=== PATIENT | male | born 1980 | race Asian ===

== ENCOUNTER 2017-03-29 06:06 | Emergency (ER) | payer OTHER ==
[~2017-03-29] VITALS: Ht 176.5 cm; Wt 97.7 kg
[~2017-03-29 06:06] MED LIST: ALPR2TAB7 PO; FAMO20TA32 PO; LEVE500T53 PO; METH40TA2 PO; TEMA15CA PO; VENL-193 PO
[2017-03-29] MEDS ORDERED: RISP2 PO (06:18)
[2017-03-29] MEDS ORDERED: CARI350 PO (06:18)
[2017-03-29] MEDS ORDERED: DIPH50CA35 PO (06:18)
[2017-03-29] MEDS ORDERED: DIAZ10 PO (06:18)
[2017-03-29] MEDS ORDERED: RisperiDONE 1 MG TABLET PO ONE (06:45)
[2017-03-29 06:52] LABS: BASOPHILS % (AUTO) 0.4 % (0.0-2.0); EOSINOPHILS % (AUTO) 2.2 % (1.0-6.0); HEMATOCRIT 39.1 % (41-53); HEMOGLOBIN 13.4 g/dL (13.5-17.5); LYMPHOCYTES # (AUTO) 1.5 K/uL (1.0-4.8); LYMPHOCYTES % (AUTO) 26.5 % (22.0-44.0); MEAN CORPUSCULAR HEMOGLOBIN 28.7 pg (26.0-34.0); MEAN CORPUSCULAR HGB CONC 34.3 G/dL (31.0-37.0); MEAN CORPUSCULAR VOLUME 84 fL (80-100); MONOCYTES # (AUTO) 0.3 K/uL (0.1-1.0); MONOCYTES % (AUTO) 5.2 % (2.0-9.0); NEUTROPHILS # (AUTO) 3.7 K/uL (1.8-7.7); NEUTROPHILS % (AUTO) 65.7 % (40.0-70.0); PLATELET COUNT (AUTO) 301 K/uL (150-450); RED BLOOD CELL COUNT(AUTO) 4.66 MIL/uL (4.50-5.90); RED CELL DISTRIBUTION WIDTH 12.9 % (11.5-14.5); WHITE BLOOD COUNT (AUTO) 5.7 K/uL (4.5-11.0)
[2017-03-29 06:55] LABS: ANION GAP 12 mmol/L (8-16); CALCIUM, TOTAL 9.1 mg/dL (8.8-10.5); CARBON DIOXIDE 27 mmol/L (22-29); CHLORIDE 99 mmol/L (98-107); CREATININE 0.86 mg/dL (0.60-1.30); GLOMERULAR FILTR. RATE CALC > 60 mL/min (>60); POTASSIUM 3.8 mmol/L (3.5-5.1); SODIUM SERUM 138 mmol/L (136-145); UREA NITROGEN, BLOOD 5 mg/dL (7-18)
[2017-03-29 07:02] LABS: ALANINE AMINOTRANSFERASE 22 U/L (12-78); ASPARTATE AMINOTRANSFERASE 14 U/L (15-37); BILIRUBIN,TOTAL 0.8 mg/dL (0.1-1.0); TOTAL PROTEIN, SERUM 7.7 g/dL (6.4-8.2)
[2017-03-29 09:15] VITALS: BP 110/75
== END 2017-03-29 09:48 | disposition home or self-care (01) ==
LOC: EMS 06:08
DX: F31.9 Bipolar disorder, unspecified (principal); F41.9 Anxiety disorder, unspecified; K21.9 Gastro-esophageal reflux disease without esophagitis; F20.9 Schizophrenia, unspecified; Z76.0 Encounter for issue of repeat prescription
CPT/HCPCS: 36415; 80053; 85025; 99284; G0480

== ENCOUNTER 2019-11-14 15:28 | Emergency (ER) | payer MEDICARE, MEDICAID ==
[~2019-11-14] VITALS: Ht 175.3 cm; Wt 90.0 kg
[~2019-11-14 15:28] MED LIST changes: +CARI350T26 PO; +DIAZ10 PO; +DIPH50CA35 PO; -METH40TA2 PO; +RISP2 PO; -TEMA15CA PO
[2019-11-14 15:32] VITALS: BP 147/67
== END 2019-11-14 17:00 | disposition home or self-care (01) ==
LOC: EMS 15:30
DX: F41.9 Anxiety disorder, unspecified (principal); F31.9 Bipolar disorder, unspecified; F20.9 Schizophrenia, unspecified; K21.9 Gastro-esophageal reflux disease without esophagitis; F17.290 Nicotine dependence, other tobacco product, uncomplicated
CPT/HCPCS: 99406